=== PATIENT | female | born 1930 | race Caucasian/White ===

== ENCOUNTER 2017-12-07 15:14 | Emergency (ER) | payer BC, OTHER ==
--- NOTE | 2017-12-07 16:13 | EDPHY ---
H & P Time Seen by Provider: 12/07/17 15:35 HPI/ROS: HPI Wanted blood pressure checked. 87-year-old female by private vehicle with her friend. This patient has a blood pressure machine and cuff at home. She routinely takes her blood pressure. She tells me that her blood pressure cuff was broken and she was not able to take her blood pressure this morning. She became anxious about this and went around to different apartments at her assisted living complex asking for a working blood pressure cuff. She was intercepted by a friend of hers who lives there. They were not able to obtain a blood pressure cuff so tried to get in to see her primary care physician and were not able to. She then came to the emergency department. She initially told nursing staff that she felt short of breath and lightheaded. She tells me these are chronic ongoing problems. She reports that she always feels mildly short of breath because she is 87 years old. She denies feeling any new or worsening shortness of breath. She also describes having some ringing in her ears intermittently as well as a whooshing sound in her head which also has been going on for a significant period of time. She declines any emergency department workup. She tells me that she does not want blood tests. She does not want an x-ray. She does not want to be admitted to the hospital. She tells me that she feels fine and at her baseline self. The patient competently engages in shared decision making. They demonstrate capacitance to make decisions. She understands the risks of declining and emergency department workup. ROS: Constitutional: No fever, no chills. No new weakness. Eyes: No discharge. No changes in vision. ENT: No sore throat. No nasal congestion or rhinorrhea. As above. Respiratory: No cough. As above. Cardiac: No chest pain, no palpitations. Gastrointestinal: No abdominal pain, no vomiting, no diarrhea. Genitourinary: No hematuria. No dysuria or increased frequency with urination. Musculoskeletal: No back pain. No neck pain. No myalgias or arthralgias. Skin: No rashes. Neurological: No headache. No focal weakness or altered sensation. Past medical history: Hyperlipidemia, hypertension, sleep apnea, hernia repair , hysterectomy. Social history: She lives at an assisted living facility. Her daughter is currently on vacation but is actively involved in her care. Her friend tells me that she has been more anxious lately because her daughter has been away. Physical Exam: General Appearance: Alert, no distress. This patient is responding to questions appropriately and in full sentences. This patient appears well- hydrated and well-nourished. Eyes: Pupils equal and round no pallor or injection. No lid edema, erythema or injection. Respiratory: There are no retractions, lungs are clear to auscultation with good air movement bilaterally. Cardiovascular: Regular rate and rhythm. No murmur. Gastrointestinal: Abdomen is soft and nontender, no masses, bowel sounds normal. No focal tenderness at McBurney's point. No Wesley sign. Neurological: Motor sensory function is grossly intact. Cranial nerves are normal. Gait is normal. Skin: Warm and dry, no rashes. Musculoskeletal: Neck is supple and nontender. Subtle larger asymmetric swelling in her left leg verses her right leg. She tells me that this has been chronic for years. All joints range without pain or impingement. Psychiatric: No agitation. No depression. Database: EKG: EKG time is 3:48 p.m.; EKG shows a narrow complex normal sinus rhythm with a ventricular rate of 78. Left anterior fascicular block noted The MT, QRS, QT intervals are within normal limits. There are no ST-T wave changes indicative of ischemic or injury pattern. No evidence of right heart strain. Interpreted by me. Imaging: Procedures: Emergency department course: Triage vital signs reviewed. She is moderately hypertensive. Vital signs are otherwise normal. As noted above. This patient declines emergency department workup. She has no acute complaints at this time. She feels comfortable being discharged with her friend. I discussed her blood pressure here as well as her vital signs and her EKG interpretation. All of her questions were answered. Return to emergency department precautions reviewed. She was discharged in good condition. Differential Diagnosis: The differential diagnosis on this patient includes but is not limited to anxiety, here for blood pressure check. Acute coronary syndrome, CVA, PE, CHF exacerbation, serious bacterial infection unlikely. This represents a partial list of diagnoses considered. These considerations are based on history, physical exam, past history, reassessment and diagnostic testing. Smoking Status: Former smoker Constitutional: Initial Vital Signs Temperature (C) 37.0 C 12/07/17 15:28 Heart Rate 82 12/07/17 15:28 Respiratory Rate 18 12/07/17 15:28 Blood Pressure 157/82 H 12/07/17 15:28 O2 Sat (%) 94 12/07/17 15:28 O2 Delivery Mode Room Air Allergies/Adverse Reactions: No Known Allergies Allergy (Unverified 12/07/17 15:28) Home Medications: Medication Instructions Recorded Aspirin 81mg (*) 12/07/17 Furosemide 12/07/17 Lisinopril 12/07/17 Lovastatin 12/07/17 Sertraline HCl 12/07/17 Tylenol 12/07/17 Medical Decision Making - Data Points Laboratory Results: 12/07/17 16:02 POC Troponin I 0.03 ng/mL ng/mL (0.00-0.08) Point of Care Test Results: Chemistry 12/07/17 16:02 POC Troponin I 0.03 ng/mL ng/mL (0.00-0.08) Departure - Departure Disposition: Home, Routine, Self-Care Clinical Impression: Blood pressure check Condition: Good Instructions: Hypertension (ED) Additional Instructions: Read and follow provided instructions. Follow-up with your primary care physician on Sunday or Sunday of next week for re-evaluation and referral to a ENT specialist as needed to evaluate the ringing in your ears and the swishing sound you're hearing. Take your medication as prescribed. Return to the emergency department for worsening symptoms or other serious concerns. Referrals: Leticia Londono MD [Primary Care Provider] - As per Instructions
[2017-12-07 16:20] VITALS: BP 137/83
--- NOTE | 2017-12-07 19:11 | CPEKG ---
Test Reason : OPEN Blood Pressure : / mmHG Vent. Rate : 078 BPM Atrial Rate : 079 BPM P-R Int : 158 ms QRS Dur : 088 ms QT Int : 372 ms P-R-T Axes : 026 -55 043 degrees QTc Int : 424 ms Sinus rhythm Left anterior fascicular block Consider right ventricular hypertrophy Confirmed by Jonah Bower ([id number]) on 12/07/2017 7:10:56 PM Referred By: Confirmed By:Jonah Bower
== END 2017-12-07 16:28 | disposition home or self-care (01) ==
LOC: CED 15:14
DX: I10 Essential (primary) hypertension (principal)
CPT/HCPCS: 84484-PO